=== PATIENT | female | born 1995 | race Caucasian/White ===

== ENCOUNTER 2022-12-13 20:04 | Inpatient (IN) | payer BC ==
[~2022-12-13 20:04] MED LIST: Bupivacaine 0.25% HCL 30 ML VIAL ONE
[2022-12-13 20:24] VITALS: BMI 31.8
[2022-12-13] MEDS ORDERED: Methylergonovine 0.2 MG/ML VIAL IM PRN (21:01)
[2022-12-13] MEDS ORDERED: HYDROcodone/Acetaminophen 5/325 mg Tablet PO PRN (21:01)
[2022-12-13] MEDS ORDERED: Ondansetron PF 4 MG/2 ML Vial IVP PRN (21:01)
[2022-12-13] MEDS ORDERED: Lidocaine 1% (PF) 30 ML VIAL SC PRN (21:01)
[2022-12-13] MEDS ORDERED: Carboprost 250 MCG/ML AMP IM PRN (21:01)
[2022-12-13] MEDS ORDERED: Ibuprofen 800 MG TAB PO PRN (21:01)
[2022-12-13] MEDS ORDERED: Acetaminophen 500 MG TAB PO PRN (21:01)
[2022-12-13] MEDS ORDERED: Diphenoxylate HCl/Atropine Tablet PO PRN (21:01)
[2022-12-13] MEDS ORDERED: Promethazine HCl 25 MG/ML VIAL IM PRN (21:01)
[2022-12-13] MEDS ORDERED: fentaNYL 50 mcg/mL 1 mL Vial SLOW IVP PRN (21:01)
[2022-12-13] MEDS ORDERED: Misoprostol 200 MCG TAB PR PRN (21:01)
[2022-12-13] MEDS ORDERED: hydrALAZINE 20 MG/ML VIAL SLOW IVP PRN (21:01)
[2022-12-13] MEDS ORDERED: Zolpidem Tartrate 5 MG TAB PO PRN (21:01)
[2022-12-13] MEDS ORDERED: Lactated Ringer's 1,000 ML IV SCH (21:15)
[2022-12-13] MEDS ORDERED: NS w/ Oxytocin 30 units 500 ML IV SCH ×2 (21:15)
[2022-12-13] MEDS ORDERED: Misoprostol 100 MCG TAB VAG SCH (21:15)
[2022-12-13 21:59] LABS: Mean Corpuscular HGB CONC 32.8 g/dL (32.0-36.0); Mean Corpuscular Hemoglobin 27.9 pg (27.0-33.0); RBC Distribution Width 16.9 % (11.5-14.5)
[2022-12-13 22:20] LABS: Syphilis Antibody Nonreactive (Nonreactive); Syphilis Antibody Index 0.03 S/CO (<1.00 Non-Reactive)
[2022-12-13 22:21] LABS: HBSAg Index 0.19 S/CO (0-0.99); Hep B Surf Ag - L&D Non-Reactive S/CO (NonReactive)
[2022-12-13 22:22] LABS: White Blood Cell (WBC) Count 7.1 10x3/uL (3.5-10.5)
[2022-12-13 22:23] LABS: Hematocrit 33.5 % (34.9-44.5); Hemoglobin 10.9 g/dL (12.0-15.5); Red Blood Cell (RBC) Count 3.92 10x6/uL (3.90-5.03)
[2022-12-13 22:24] LABS: Mean Corpuscular Volume 85.5 fl (81.6-98.3); Platelet Count 132 10x3/uL (150-450)
[2022-12-13 22:25] LABS: Mean Platelet Volume 11.4 fl (7.4-10.4)
[2022-12-14] MEDS ORDERED: fentaNYL/Ropivacaine Epidural 100 ML ONE (08:58)
[2022-12-14] MEDS ORDERED: Lactated Ringer's 500 ML IV PRN (11:24)
[2022-12-14] MEDS ORDERED: Promethazine HCl 25 MG/ML VIAL IM PRN (11:24)
[2022-12-14] MEDS ORDERED: Ondansetron PF 4 MG/2 ML Vial IVP PRN ×2 (11:24→22:43)
[2022-12-14] MEDS ORDERED: ePHEDrine Sulfate 50 MG/10 ML VIAL SLOW IVP PRN (11:24)
[2022-12-14] MEDS ORDERED: Acetaminophen 325 MG TAB PO PRN ×2 (11:24→22:43)
[2022-12-14] MEDS ORDERED: Naloxone HCl 0.4 mg/ml Vial IVP PRN ×2 (11:24)
[2022-12-14] MEDS ORDERED: diphenhydrAMINE 50 MG/ML VIAL IVP PRN (11:24)
[2022-12-14] MEDS ORDERED: Moisturizing Cream (Eucerin) 113 GM JAR TOP PRN (11:24)
[2022-12-14] MEDS ORDERED: Communication Order-Pharmacy FS SCH (11:30)
[2022-12-14] MEDS ORDERED: fentaNYL 2 mcg/Ropivacaine 0.2% Epidural 100 ML CADD EPIDURAL SCH (11:30)
[2022-12-14] MEDS ORDERED: PROPOFOL 0 ML ONE (15:53)
[2022-12-14] MEDS ORDERED: Lidocaine 2% MPF 10 ML AMP (For Epidural Use) ONE (16:24)
[2022-12-14] MEDS ORDERED: Succinylcholine 200 MG/10 ml SYRINGE FS ONE (16:24)
[2022-12-14] MEDS ORDERED: CEFAZOLIN 2 GM VIAL ONE (16:28)
[2022-12-14] MEDS ORDERED: Azithromycin 500 MG VIAL ONE ×2 (16:29→16:35)
[2022-12-14] MEDS ORDERED: Oxytocin 10 UNITS/ML VIAL ONE (16:32)
[2022-12-14] MEDS ORDERED: CEFAZOLIN 1 GM VIAL ONE (16:32)
[2022-12-14] MEDS ORDERED: Methylergonovine 0.2 MG/ML VIAL ONE (16:35)
[2022-12-14] MEDS ORDERED: Tranexamic Acid 1,000 MG/10 ML VIAL ONE (16:37)
[2022-12-14] MEDS ORDERED: Morphine PF 10 MG/10 ML VIAL ONE (16:38)
[2022-12-14] MEDS ORDERED: Dexamethasone 4 mg/ml Vial ONE (16:40)
[2022-12-14] MEDS ORDERED: Bupivacaine PF 0.5% 30 ML VIAL ONE (16:40)
[2022-12-14] MEDS ORDERED: Ondansetron PF 4 MG/2 ML Vial ONE (16:40)
[2022-12-14] MEDS ORDERED: Promethazine HCl 25 MG/ML VIAL ONE (16:42)
[2022-12-14 16:51] LABS: RapidComm Collect By CBN; pH (Cord, venous) 7.363 (7.250-7.350)
[2022-12-14 16:53] LABS: RapidComm Collect By CBN
[2022-12-14] MEDS ORDERED: Misoprostol 200 MCG TAB ONE (17:05)
[2022-12-14] MEDS ORDERED: Ketorolac Tromethamine 30 MG/ML VIAL ONE (17:13)
[2022-12-14] MEDS ORDERED: Meperidine HCl/PF 25 MG/ML VIAL ONE (17:50)
[2022-12-14 22:02] LABS: Bilirubin Neg (Negative); Blood, Urine 50 (Negative); Clarity Clear (Clear); Glucose, Urine (Dipstick) 250 mg/dL (Negative); Ketone, Urine 15 mg/dL (Negative); Leukocyte 25 (Negative); Nitrite Negative (Negative); Protein, Urine (Dipstick) 100 mg/dl (Neg-Trace)
[2022-12-14 22:17] LABS: ALT (SGPT) 12 U/L (8-55); AST (SGOT) 22 U/L (5-34); Albumin 2.9 g/dL (3.5-5.0); Alkaline Phosphatase 161 U/L (40-110); Anion Gap 13 mmol/L (10-20); BUN (Urea Nitrogen) 9 mg/dL (7.0-18.7); Bilirubin, Total 0.5 mg/dL (0.2-1.2); Calc. Creatinine Clearance 167 mL/min (70-130); Carbon Dioxide 19 mmol/L (22-29); Chloride 106 mmol/L (98-107); Estimated GFR 120; Globulin 2.5 g/dL (2.4-3.5); Glucose 128 mg/dL (70-105); Protein, Total 5.4 g/dL (6.0-8.3); Sodium 134 mmol/L (136-145)
[2022-12-14 22:35] LABS: Bacteria/HPF Rare-Few HPF (None Seen); CAUTI Indications for Culture Pregnancy; RBC/HPF 0-3 HPF (0-3); Squamous Epithelial 0-3 HPF (0-3)
[2022-12-14 22:37] LABS: Urine Culture Reflex Yes Yes
[2022-12-14] MEDS ORDERED: diphenhydrAMINE 25 MG CAP PO PRN (22:43)
[2022-12-14] MEDS ORDERED: Bisacodyl 10 MG SUPP PR PRN (22:43)
[2022-12-14] MEDS ORDERED: hydrALAZINE 20 MG/ML VIAL SLOW IVP PRN (22:43)
[2022-12-14] MEDS ORDERED: Boostrix 0.5 ML (Tdap) VIAL (>/=7 yrs of age) IM ONE (22:43)
[2022-12-14] MEDS ORDERED: Simethicone Chewable 80 MG TAB PO PRN (22:43)
[2022-12-14] MEDS ORDERED: Lanolin Ointment 7 GM TUBE TOP PRN (22:43)
[2022-12-14] MEDS ORDERED: Ferrous Sulfate 325 MG TAB PO SCH (23:00)
[2022-12-14] MEDS ORDERED: Docusate 100 MG CAP PO SCH (23:00)
[2022-12-14] MEDS ORDERED: Ibuprofen 800 MG TAB PO SCH (23:00)
[2022-12-14 23:16] LABS: #Eosinphils 0.3 10x3/uL (0.0-0.5); #Monocytes 0.4 10x3/uL (0.0-1.1); %Basophils 0.2 % (0.0-2.0); %Eosinophils 1.9 % (0.0-6.0); %Lymphocytes 4.7 % (18.0-47.0); %Monocytes 3.1 % (0.0-10.0); %Neutrophils 89.8 % (40.0-75.0); Hematocrit 37.4 % (34.9-44.5); Hemoglobin 12.1 g/dL (12.0-15.5); Mean Corpuscular HGB CONC 32.4 g/dL (32.0-36.0); Mean Corpuscular Hemoglobin 27.7 pg (27.0-33.0); Mean Corpuscular Volume 85.6 fl (81.6-98.3); Mean Platelet Volume 11.3 fl (7.4-10.4); Platelet Count 127 10x3/uL (150-450); RBC Distribution Width 16.9 % (11.5-14.5); Red Blood Cell (RBC) Count 4.37 10x6/uL (3.90-5.03); White Blood Cell (WBC) Count 13.3 10x3/uL (3.5-10.5)
[2022-12-15] MEDS: Ketorolac Tromethamine 30 MG/ML VIAL IVP SCH ×3 (02:07→13:45)
[2022-12-15 05:15] LABS: Hematocrit 32.1 % (34.9-44.5); Hemoglobin 10.5 g/dL (12.0-15.5); Mean Corpuscular HGB CONC 32.7 g/dL (32.0-36.0); Mean Corpuscular Hemoglobin 27.6 pg (27.0-33.0); Mean Corpuscular Volume 84.5 fl (81.6-98.3); Mean Platelet Volume 10.8 fl (7.4-10.4); Platelet Count 121 10x3/uL (150-450); RBC Distribution Width 16.8 % (11.5-14.5); White Blood Cell (WBC) Count 12.8 10x3/uL (3.5-10.5)
[2022-12-15] MEDS: Prenatal Vitamin 1 TAB PO SCH (07:53)
[2022-12-15] MEDS: Docusate 100 MG CAP PO SCH ×2 (07:54→21:46)
[2022-12-15] MEDS: Ferrous Sulfate 325 MG TAB PO SCH ×2 (08:50→20:16)
[2022-12-15] MEDS: HYDROcodone/Acetaminophen 5/325 mg Tablet PO PRN ×3 (12:07→23:52)
[2022-12-15] MEDS: Ibuprofen 800 MG TAB PO SCH (21:46)
[2022-12-16] MEDS: Ibuprofen 800 MG TAB PO SCH ×3 (05:18→21:48)
[2022-12-16] MEDS: HYDROcodone/Acetaminophen 5/325 mg Tablet PO PRN ×3 (05:19→19:21)
[2022-12-16] MEDS: Ferrous Sulfate 325 MG TAB PO SCH ×2 (07:44→21:48)
[2022-12-16] MEDS: Docusate 100 MG CAP PO SCH ×2 (08:16→21:48)
[2022-12-16] MEDS: Prenatal Vitamin 1 TAB PO SCH (08:16)
[2022-12-17] MEDS: Ibuprofen 800 MG TAB PO SCH (05:30)
[2022-12-17] MEDS: HYDROcodone/Acetaminophen 5/325 mg Tablet PO PRN ×2 (06:52→12:50)
[2022-12-17 07:38] VITALS: BP 141/86; TEMP 98.5
[2022-12-17] MEDS: Ferrous Sulfate 325 MG TAB PO SCH (08:42)
[2022-12-17] MEDS: Docusate 100 MG CAP PO SCH (08:44)
[2022-12-17] MEDS: Prenatal Vitamin 1 TAB PO SCH (08:44)
== END 2022-12-17 13:00 | disposition home or self-care (01) | DRG 788 ==
LOC: CSHLD 20:04 → CSHPED 12-14 21:45
PROVIDERS: ADMIT Student in an Organized Health Care Education/Training Program; ATTEND Student in an Organized Health Care Education/Training Program
PROC: 10D00Z1 Extraction of Products of Conception, Low, Open Approach (ICD-10-PCS; principal; 2022-12-13)
PROC: 10E0XZZ Delivery of Products of Conception, External Approach (ICD-10-PCS; 2022-12-13)
PROC: 10907ZC Drainage of Amniotic Fluid, Therapeutic from Products of Conception, Via Natural or Artificial Opening (ICD-10-PCS; 2022-12-13)
PROC: 0HQ9XZZ Repair Perineum Skin, External Approach (ICD-10-PCS; 2022-12-13)
PROC: 4A133R1 Monitoring of Arterial Saturation, Peripheral, Percutaneous Approach (ICD-10-PCS; 2022-12-13)
PROC: 3E033VJ Introduction of Other Hormone into Peripheral Vein, Percutaneous Approach (ICD-10-PCS; 2022-12-13)
DX: O24.420 Gestational diabetes mellitus in childbirth, diet controlled (principal); O30.033 Twin pregnancy, monochorionic/diamniotic, third trimester; Z37.2 Twins, both liveborn; Z3A.37 37 weeks gestation of pregnancy
CPT/HCPCS: 36415; 36416; 51702; 74018; 80053; 81001; 82570; 82805; 84156; 85025; 85027; 86780; 86850; 86900; 86901; 87086; 87340; J0690; J1100; J1885; J2175; J2210; J2274; J2405; J2550; J2590; J2704; S0020